=== PATIENT | female | born 2000 | race African-American/Black ===

== ENCOUNTER 2023-03-11 22:43 | Emergency (ER) | payer MEDICAID ==
[~2023-03-11] VITALS: Ht 170.2 cm; Wt 72.0 kg
[2023-03-11 22:50] VITALS: BP 102/57; PULSE 58; RESP 19; TEMP 98.3; O2SAT 99
[2023-03-12] MEDS ORDERED: METH-653 MT (09:32)
[2023-03-12] MEDS ORDERED: IBUP-2028 MT (09:32)
== END 2023-03-12 01:40 | disposition left against medical advice (07) ==
LOC: ER 22:43
DX: Z53.21 Procedure and treatment not carried out due to patient leaving prior to being seen by health care provider (principal)
CPT/HCPCS: 81025; 99281

== ENCOUNTER 2023-03-12 04:28 | Emergency (ER) | payer MEDICAID ==
[~2023-03-12] VITALS: Ht 170.2 cm; Wt 61.5 kg
[2023-03-12 04:51] VITALS: O2SAT 100
[2023-03-12] MEDS ORDERED: ONDANSETRON HCL 4MG/2ML INJ IV STA (06:11)
[2023-03-12] MEDS ORDERED: MORPHINE SULFATE 4 MG/ML CPJ (NOT FOR IM USE) IV STA (06:11)
[2023-03-12] MEDS ORDERED: SODIUM CHLORIDE 0.9% 1,000 ML IV ONE (06:15)
[2023-03-12 07:02] LABS: BASOPHILS % 0.6 % (0.0-2.0); EOSINOPHILS % 2.7 % (0.0-5.0); HEMATOCRIT. 37.5 % (36.0-48.0); HEMOGLOBIN. 12.5 g/dL (12.0-16.0); MEAN CORPUSCULAR HEMOGLOBIN 29.1 pg (28.0-32.0); MEAN CORPUSCULAR HGB CONC 33.3 g/dL (31.0-37.0); MEAN CORPUSCULAR VOLUME 87.5 fL (81.0-99.0); MEAN PLATELET VOLUME 9.7 fl (7.4-10.4); MONOCYTES % 10.2 % (2.0-8.0); NEUTROPHILS % 50.5 % (40.0-76.0); PLATELET 214 x1000/uL (130-400); RED BLOOD CELL COUNT 4.29 mill/uL (4.2-5.4); RED CELL DISTRIBUTION WIDTH 14.9 % (11.6-14.6); WHITE BLOOD COUNT 9.1 x1000/uL (4.5-11.0)
[2023-03-12 07:23] LABS: TROPONIN I HIGH SENSITIVITY 4 ng/L (<54)
[2023-03-12 07:28] LABS: CLARITY URINE CLOUDY (CLEAR); COLOR URINE YELLOW (YELLOW); GLUCOSE URINE NEGATIVE (NEGATIVE); KETONES URINE TRACE (NEGATIVE); LEUKOCYTE ESTERASE URINE 1+ (NEGATIVE); NITRITE URINE NEGATIVE (NEGATIVE); OCCULT BLOOD URINE NEGATIVE (NEGATIVE); PROTEIN URINE NEGATIVE (NEGATIVE); SPECIFIC GRAVITY URINE 1.026 (1.005-1.030)
[2023-03-12 08:37] LABS: BACTERIA URINE 4+; MUCUS URINE TRACE /lpf (< = 2+); SQUAMOUS EPITHELIAL CELL URINE 3+ /lpf (RARE/1+)
[2023-03-12 08:39] LABS: RBC URINE 0-2 /hpf (0-2); WBC URINE 0-2 /hpf (0-2)
[2023-03-12] MEDS ORDERED: IBUP-2028 MT (09:32)
[2023-03-12] MEDS ORDERED: METH-653 MT (09:32)
[2023-03-12 10:28] VITALS: BP 129/85; PULSE 70; RESP 18; TEMP 97.8
== END 2023-03-12 10:30 | disposition home or self-care (01) ==
LOC: ER 04:42
DX: S30.1XXA Contusion of abdominal wall, initial encounter (principal); S16.1XXA Strain of muscle, fascia and tendon at neck level, initial encounter; I49.9 Cardiac arrhythmia, unspecified; V49.9XXA Car occupant (driver) (passenger) injured in unspecified traffic accident, initial encounter; Y93.89 Activity, other specified; Y92.89 Other specified places as the place of occurrence of the external cause; Y99.8 Other external cause status
CPT/HCPCS: 81003; 81025; 82962; 85025; 84484; 36415; 71045; 72125; 76700; 93005; 96361; 96374; 96375; 99285; J2405; J2270; J7030; Z7610 ×2

== ENCOUNTER 2023-10-28 15:42 | Emergency (ER) | payer MEDICAID ==
[~2023-10-28] VITALS: Ht 167.6 cm; Wt 79.0 kg
[~2023-10-28 15:42] MED LIST: IBUP-2028 MT; METH-653 MT
[2023-10-28 15:44] VITALS: O2SAT 100
[2023-10-28 16:02] VITALS: TEMP 98
[2023-10-28 16:44] LABS: BASOPHILS % 0.3 % (0.0-2.0); EOSINOPHILS % 1.2 % (0.0-5.0); HEMATOCRIT. 30.1 % (36.0-48.0); HEMOGLOBIN. 10.3 g/dL (12.0-16.0); LYMPHOCYTES % 12.5 % (20.0-50.0); MEAN CORPUSCULAR HEMOGLOBIN 29.6 pg (28.0-32.0); MEAN CORPUSCULAR HGB CONC 34.1 g/dL (31.0-37.0); MEAN CORPUSCULAR VOLUME 86.9 fL (81.0-99.0); MEAN PLATELET VOLUME 10.5 fl (7.4-10.4); MONOCYTES % 6.1 % (2.0-8.0); NEUTROPHILS % 79.9 % (40.0-76.0); PLATELET 172 x1000/uL (130-400); RED BLOOD CELL COUNT 3.46 mill/uL (4.2-5.4); RED CELL DISTRIBUTION WIDTH 13.3 % (11.6-14.6); WHITE BLOOD COUNT 10.1 x1000/uL (4.5-11.0)
[2023-10-28 16:54] LABS: INR 0.9; PROTHROMBIN TIME 10.3 sec (9.6-11.0)
[2023-10-28 16:58] LABS: CLARITY URINE CLOUDY (CLEAR); COLOR URINE YELLOW (YELLOW); GLUCOSE URINE NEGATIVE (NEGATIVE); KETONES URINE NEGATIVE (NEGATIVE); LEUKOCYTE ESTERASE URINE NEGATIVE (NEGATIVE); NITRITE URINE NEGATIVE (NEGATIVE); OCCULT BLOOD URINE NEGATIVE (NEGATIVE); PH URINE 7.5 (4.5-8.0); PROTEIN URINE NEGATIVE (NEGATIVE); SPECIFIC GRAVITY URINE 1.016 (1.005-1.030); UROBILINOGEN URINE 0.2 E.U./dL (0.2-1.0)
[2023-10-28 17:02] LABS: ALANINE AMINOTRANSFERASE < 7 IU/L (10-49); ALBUMIN 3.6 g/dL (3.2-4.8); ASPARTATE AMINOTRANSFERASE 17 IU/L (<34); BILIRUBIN TOTAL 0.3 mg/dL (0.1-1.0); CALCIUM 8.5 mg/dL (8.7-10.4); CARBON DIOXIDE 23 mEq/L (21-32); CHLORIDE 106 mEq/L (98-107); CREATININE 0.6 mg/dL (0.6-1.0); GLUCOSE 98 mg/dL (70-105); POTASSIUM 3.6 mEq/L (3.5-5.1); PROTEIN TOTAL 6.8 g/dL (6.0-8.3); SODIUM 135 mEq/L (136-145); UREA NITROGEN BLOOD 9 mg/dL (9-23)
[2023-10-28] MEDS: ONDANSETRON HCL 4MG/2ML INJ IV ONE (17:16)
[2023-10-28] MEDS: SODIUM CHLORIDE 0.9% 1,000 ML IV ONE (17:16)
[2023-10-28 17:17] LABS: BACTERIA URINE 2+; RBC URINE 0-2 /hpf (0-2); SQUAMOUS EPITHELIAL CELL URINE 2+ /lpf (RARE/1+); WBC URINE 0-2 /hpf (0-2)
[2023-10-28] MEDS: ACETAMINOPHEN 325MG TABLET PO ONE (17:22)
[2023-10-28] MEDS ORDERED: CEPH500T MT (18:39)
[2023-10-28 18:49] VITALS: BP 107/53; PULSE 67; RESP 16
== END 2023-10-28 18:52 | disposition home or self-care (01) ==
LOC: ER 15:42
DX: O26.893 Other specified pregnancy related conditions, third trimester (principal); O99.513 Diseases of the respiratory system complicating pregnancy, third trimester; Z3A.29 29 weeks gestation of pregnancy
CPT/HCPCS: 80053; 81003; 85025; 85610; 86850; 86900; 86901; 36415; 86705; 76805; 96361; 96374; 99285; J2405; J7030; Z7610 ×2